=== PATIENT | female | born 1965 | race Two or more races ===

== ENCOUNTER 2016-09-03 21:46 | Emergency (ER) | payer OTHER ==
[2016-09-03] MEDS ORDERED: LIDOCAINE 5% PATCH ONE (23:00)
[2016-09-03] MEDS ORDERED: KETOROLAC TROMETHAMINE 60 MG/2 ML VIAL ONE (23:00)
--- NOTE | 2016-09-04 07:11 | RAD ---
Exam: Two-view chest COMPARISON: None INDICATION: Right anterior rib pain status post fall. FINDINGS: PA and lateral views of the chest were obtained. Cardiac silhouette is within normal limits. Lungs are well-inflated. There is minor right basilar scarring or atelectasis. Lungs are otherwise clear. There is no pneumothorax or pleural effusion. No displaced rib fracture is identified. Surgical clips are noted within the right upper quadrant. IMPRESSION: No displaced rib fracture is identified. Minor right basilar scarring or atelectasis.
== END 2016-09-03 23:15 | disposition home or self-care (01) ==
LOC: ED 21:46
DX: S20.219A Contusion of unspecified front wall of thorax, initial encounter (principal); W18.30XA Fall on same level, unspecified, initial encounter
CPT/HCPCS: 71020; 99283 ×2; 96372; A9270; J1885

== ENCOUNTER 2016-09-08 13:11 | Emergency (ER) | payer OTHER ==
[2016-09-08] MEDS ORDERED: KETOROLAC TROMETHAMINE 60 MG/2 ML VIAL ONE (13:59)
[2016-09-08] MEDS ORDERED: METOCLOPRAMIDE HCL 5 MG/ML 2ML VIAL ONE (13:59)
[2016-09-08] MEDS ORDERED: DIPHENHYDRAMINE HCL 25 MG CAPSULE ONE (13:59)
== END 2016-09-08 14:43 | disposition home or self-care (01) ==
LOC: ED 13:11
DX: R51 Headache (principal); S16.1XXA Strain of muscle, fascia and tendon at neck level, initial encounter; X58.XXXA Exposure to other specified factors, initial encounter; Y93.9 Activity, unspecified; Y92.9 Unspecified place or not applicable
CPT/HCPCS: 99283 ×2; 96372 ×2; A9270; J2765; J1885